=== PATIENT | male | born 1970 | race Caucasian/White ===

== ENCOUNTER → 2022-05-25 | Outpatient (CLI) | payer OTHER ==
[~2022-05-25] MED LIST: Ultram50 MG PO
[2022-05-31 02:10] LABS: HSV-1 DNA Negative (Negative); HSV-2 DNA Negative (Negative)
== END | disposition home or self-care (01) ==
LOC: LAB SHORT 13:35
PROVIDERS: General Practice
DX: L08.9 Local infection of the skin and subcutaneous tissue, unspecified (principal)
CPT/HCPCS: 86592; 87070; 87075; 87077; 87147; 87186; 87205; 87529

== ENCOUNTER 2024-09-12 16:17 | Inpatient (IN) | payer BC ==
[~2024-09-12] VITALS: Ht 180.3 cm; Wt 149.9 kg
[2024-09-12] MEDS ORDERED: Aspirin 325 MG Tab PO ONE (17:20)
[2024-09-12] MEDS ORDERED: Clopidogrel Bisulfate 75 MG Tab PO ONE (17:20)
[2024-09-12] MEDS ORDERED: Labetalol HCL 5 MG/ML 4ML Injection (Single Dose) IV ONE (17:25)
[2024-09-12 17:41] LABS: BASOPHILS ABSOLUTE AUTO 0.04 K/mm3 (0.00-0.23); BASOPHILS PERCENT AUTO 1 % (0-2); EOSINOPHILS ABSOLUTE AUTO 0.18 K/mm3 (0.00-0.68); EOSINOPHILS PERCENT AUTO 3 % (0-6); Hemoglobin 13.2 g/dL (13.5-17.5); IMMATURE GRAN ABSOLUTE AUTO 0.02 K/mm3 (0.00-0.10); IMMATURE GRAN PERCENT AUTO 0 % (0-1); LYMPHOCYTES ABSOLUTE AUTO 1.54 K/mm3 (0.84-5.20); LYMPHOCYTES PERCENT AUTO 25 % (21-46); MONOCYTES ABSOLUTE AUTO 0.41 K/mm3 (0.16-1.47); MONOCYTES PERCENT AUTO 7 % (4-13); Mean Corpuscular HGB 27.9 pg (26.0-34.0); Mean Corpuscular HGB Conc 33.8 g/dL (31.5-36.5); Mean Corpuscular Volume 83 fL (80-100); NEUTROPHILS ABSOLUTE AUTO 4.05 K/mm3 (1.96-9.15); NEUTROPHILS PERCENT AUTO 65 % (41-73); Platelet Count 216 K/mm3 (150-400); RDW Coefficient Variation 13.7 % (11.7-14.2); RDW Standard Deviation 41.4 fL (35.1-46.3); Red Blood Cell Count 4.73 M/mm3 (4.30-5.90); White Blood Cell Count 6.24 K/mm3 (4.00-11.30)
[2024-09-12 17:59] LABS: Albumin, Blood 3.2 g/dL (3.4-5.0); Albumin/Globulin Ratio 0.9 (0.8-1.8); Bilirubin, Total 0.7 mg/dL (0.1-1.0); Bun/Creatinine Ratio 19.4 (12.0-20.0); Calcium, Blood 8.6 mg/dL (8.5-10.1); Creatinine, Blood 0.93 mg/dL (0.60-1.20); Globulin, Blood 3.6 g/dL (2.2-4.0); Potassium, Blood 3.9 mmol/L (3.5-5.5); Total Protein, Blood 6.8 g/dL (6.4-8.2)
[2024-09-12] MEDS ORDERED: Atorvastatin 10 MG Tab PO ONE (18:05)
[2024-09-12] MEDS ORDERED: NS 1,000 ML IV SCH (20:30)
[2024-09-12] MEDS ORDERED: Ondansetron HCl 2 MG / ML 2ML Vial IV PRN (20:30)
[2024-09-12] MEDS ORDERED: FLU VACC TS2024-25(6MOS UP)/PF 45 MCG/0.5 ML SYRINGE IM SCH (20:30)
[2024-09-12] MEDS ORDERED: Labetalol HCL 5 MG/ML 4ML Injection (Single Dose) IV PRN (20:30)
[2024-09-12] MEDS ORDERED: NS 1,000 ML IV ONE (21:00)
--- NOTE | 2024-09-12 23:02 | NUR ---
NEW ADMIT PT TO ROOM AT 2200; ABLE TO TRANSFER TO BED WITH SBA. PT ADMIT FOR CVA WITH RIGHT SIDE NUMBNESS. STRENGTH EQUAL. NOTED SLIGHTLY IMPAIRED DEXTERITY WITH RIGHT HAND. PERCEPTIBLE SLURRED SPEECH. PT HX OF HTN. BP UPON ARRIVAL 201/111. TELE ORDERED AND PLACED; NSR AT 74. 10MG IV PUSH LABATELOL OVER 2 MINUTES. PENDING RECHECK OF BLOOD PRESSURE. ORIENTED PT TO ROOM AND CALL LIGHT. INSTRUCTED ON FALL PREVENTION AND SBA TO [facility]. CONDUCTED BED SIDE SWALLOW EVAL; PT ABLE TO TOLERATE ALL TEXTURES AND THIN LIQUIDS. PER PROVIDER ORDER; ADVANCED TO REGULAR DIET. PT IS A/OX4. ABLE TO MAKE NEEDS KNOWN.
[2024-09-12 23:37] VITALS: BP 188/104
[2024-09-12 23:56] LABS: U Amphetamine Screen Not Detected; U Barbituate Screen Not Detected; U Benzodiazapine Screen Not Detected; U Buprenorphine Screen Not Detected; U Cannabinoids Screen Not Detected; U Cocaine Screen Not Detected; U Methadone Screen Not Detected; U Methamphetamine Screen Not Detected; U Opiates Screen Not Detected; U Oxycodone Screen Not Detected; U Phencyclidine Screen Not Detected
[2024-09-13 02:14] VITALS: BP 201/106
[2024-09-13 03:10] VITALS: BP 188/104
[2024-09-13 05:50] VITALS: BP 192/108
[2024-09-13 07:02] LABS: Bun/Creatinine Ratio 14.6 (12.0-20.0); Calcium, Blood 8.7 mg/dL (8.5-10.1); Creatinine, Blood 0.82 mg/dL (0.60-1.20); Magnesium, Blood 2.2 mg/dL (1.6-2.4); Potassium, Blood 3.5 mmol/L (3.5-5.5)
[2024-09-13 07:40] VITALS: BP 198/109
[2024-09-13] MEDS ORDERED: Clopidogrel Bisulfate 75 MG Tab PO SCH (09:00)
[2024-09-13] MEDS ORDERED: Aspirin 81 MG Chew PO SCH (09:00)
[2024-09-13] MEDS ORDERED: Atorvastatin 40 MG Tab PO SCH (09:00)
[2024-09-13] MEDS ORDERED: Enoxaparin 40 MG/0.4 ML SYR SC SCH (09:00)
--- NOTE | 2024-09-13 13:43 | NUR ---
MD NOTIFY PT WENT DOWN TO MRI BUT WAS OVER THE WEIGHT LIMIT FOR [facility] MACHINE. PT BACK IN ROOM. DR ANDERSON CALLED AND NOTIFIED.
[2024-09-13 15:41] VITALS: BP 191/107
--- NOTE | 2024-09-13 17:00 | NUR ---
SHIFT SUMMARY MR THOMAS IS ABLE TO ANSWER ORIENTATION QUESTIONS APPROPRIATELY, AND MOST CONVERSATION IS APPROPRIATE BUT THERE ARE SOME SENTENCES THAT INDICATE THAT HIS THINKING IS NOT ENTIRELY CLEAR. HE DOES NOT KNOW WHAT SEASON IT IS, AND WHEN ASKED WHICH IS THE THIRD MONTH HE REPLIED FEBRUARY. THIS HAS NOT CHANGED THROUGHOUT THE SHIFT. HE DESCRIBES SOME NUMBNESS AROUND HIS MOUTH AND TINGLING TO RIGHT HAND AND FOOT. HE HAS RIGHT ARM DRIFT AND POOR R HAND DEXTERITY, THESE SYMPTOMS HAVE NOT CHANGED THROUGHOUT ON REASSESSMENT. HE HAS UNSTEADY GAIT, 1-2 PERSON ASSIT WITH GAIT BELT AND FWW. HE FORGETS TO USE CALL SYSTEM FOR ASSISTANCE SO CHAIR AND BED ALARMS USED. BLOOD PRESSURE REMAINS HIGH. BED LOW, CALL LIGHT IN REACH.
[2024-09-13 19:18] VITALS: BP 184/105
[2024-09-14 01:14] VITALS: BP 221/111
--- NOTE | 2024-09-14 01:54 | NUR ---
RN NOTE SPOT CHECK BLOOD PRESSURE; 211/111. GAVE IV PUSH LABATELOL; NOTIFIED PCU SALES TRAINING COORDINATOR PRIOR TO PUSH. PENDING F/U BLOOD PRESSURE CHECK. PT DENIES CP, DIZZYNESS, HEADACHE OR CHANGE IN CONDITION.
[2024-09-14 03:23] VITALS: BP 210/105
[2024-09-14] MEDS ORDERED: HydrALAZINE HCl 20 MG / ML 1ML Vial IV ONE (05:20)
[2024-09-14 05:21] LABS: BASOPHILS ABSOLUTE AUTO 0.03 K/mm3 (0.00-0.23); BASOPHILS PERCENT AUTO 0 % (0-2); EOSINOPHILS ABSOLUTE AUTO 0.16 K/mm3 (0.00-0.68); EOSINOPHILS PERCENT AUTO 2 % (0-6); Hematocrit 38.7 % (37.0-53.0); Hemoglobin 13.1 g/dL (13.5-17.5); IMMATURE GRAN ABSOLUTE AUTO 0.02 K/mm3 (0.00-0.10); IMMATURE GRAN PERCENT AUTO 0 % (0-1); LYMPHOCYTES ABSOLUTE AUTO 1.81 K/mm3 (0.84-5.20); LYMPHOCYTES PERCENT AUTO 27 % (21-46); MONOCYTES ABSOLUTE AUTO 0.39 K/mm3 (0.16-1.47); MONOCYTES PERCENT AUTO 6 % (4-13); Mean Corpuscular HGB Conc 33.9 g/dL (31.5-36.5); Mean Corpuscular Volume 83 fL (80-100); Mean Platelet Volume 9.2 fL (9.1-12.4); NEUTROPHILS ABSOLUTE AUTO 4.43 K/mm3 (1.96-9.15); NEUTROPHILS PERCENT AUTO 65 % (41-73); Platelet Count 220 K/mm3 (150-400); RDW Coefficient Variation 13.8 % (11.7-14.2); RDW Standard Deviation 41.4 fL (35.1-46.3); Red Blood Cell Count 4.68 M/mm3 (4.30-5.90); White Blood Cell Count 6.84 K/mm3 (4.00-11.30)
[2024-09-14 05:47] LABS: Bun/Creatinine Ratio 16.8 (12.0-20.0); Calcium, Blood 8.8 mg/dL (8.5-10.1); Creatinine, Blood 0.77 mg/dL (0.60-1.20); Potassium, Blood 3.5 mmol/L (3.5-5.5)
[2024-09-14 07:20] VITALS: BP 187/116
--- NOTE | 2024-09-14 07:57 | NUR ---
WARES SORTER SUMMARY NO ACUTE CHANGES. PT A/OX3. PT CONTINUES TO REPORT NUMBNESS TO RIGHT SIDE. SPEECH IS SLURRED. DEXTERITY/COORDINATION IMPAIRED. MONITORED BLOOD PRESSURE T/O THE NIGHT. PT CONTINUTING TO HAVE ELEVATED BP GREATER THAN 200. ADMINISTERED LABATELOL; BP RECHECK STILL GREATER THAN 200. CALL TO HOSPITALIST/CONSTANCE--NEW ORDER FOR ONE TIME DOSE HYDRALAZINE; GAVE MED TO PT, BP RECHEK SYS 187. CALL LIGHT ACCESSIBLE.
[2024-09-14] MEDS ORDERED: Losartan Potassium 25 MG Tab PO SCH (09:00)
[2024-09-14] MEDS ORDERED: AmLODIPine Besylate 5 MG Tab PO SCH ×2 (09:00)
[2024-09-14] MEDS ORDERED: AMLO10 PO (13:55)
[2024-09-14] MEDS ORDERED: ATOR10 PO (13:56)
[2024-09-14] MEDS ORDERED: ASPI81CH PO (13:56)
[2024-09-14] MEDS ORDERED: CLOP75 PO (13:57)
[2024-09-14] MEDS ORDERED: LOSA25 PO (13:58)
[2024-09-14 15:01] VITALS: BP 191/116
--- NOTE | 2024-09-14 17:59 | NUR ---
DISCHARGE PT DISCHARGED VIA WHEEL CHAIR TO PRIVATE VEHICLE WITH FAMILY AND WALKER. BP TODAY 187/116 AND 191/116, NO SLURRED SPEACH NOTED, A&OX4, UNSTEADY GAIT. CALLED APPROPRIATELY. EDUCATION PROVIDED ON MEDICATIONS, SIGNS AND SYMPTOMS OF STROKE, AND FOLLOW UP APPOINTMENT. ALL QUESTIONS ANSWERED.
[2024-09-14] MEDS ORDERED: Atorvastatin 40 MG Tab PO SCH (18:00)
== END 2024-09-14 17:48 | disposition home health service (06) | DRG 65 ==
LOC: ER 16:17 → MEDS 20:24
PROVIDERS: Nurse Practitioner Acute Care; Physician Assistant; Student in an Organized Health Care Education/Training Program; ADMIT Internal Medicine
DX: I63.9 Cerebral infarction, unspecified (principal); G81.91 Hemiplegia, unspecified affecting right dominant side; Z68.41 Body mass index [BMI] 40.0-44.9, adult; E78.5 Hyperlipidemia, unspecified; I10 Essential (primary) hypertension; G47.33 Obstructive sleep apnea (adult) (pediatric); E66.01 Morbid (severe) obesity due to excess calories; R29.701 NIHSS score 1; R47.81 Slurred speech; I16.0 Hypertensive urgency; Z87.891 Personal history of nicotine dependence
CPT/HCPCS: 36415; 70450; 70496; 70498; 80048; 80053; 83036; 83721; 83735; 85025; 92610; 93005; 93010; 96374-59; 97110; 97112; 97116; 97161; 97165; 97530; 99285-25; A9270; C8929; J0360; J1650; J7030; Q9957; Q9967